=== PATIENT | male | born 1970 ===

== ENCOUNTER 2017-11-23 09:59 | Emergency (ER) | payer SELFPAY ==
[~2017-11-23] VITALS: Ht 177.8 cm; Wt 83.9 kg
[2017-11-23] MEDS ORDERED: Prednisone20 MG PO (11:08)
== END 2017-11-23 11:17 | disposition home or self-care (01) ==
LOC: ER 09:59
DX: L23.7 Allergic contact dermatitis due to plants, except food (principal)
CPT/HCPCS: 99282